=== PATIENT | male | born 1995 | race Caucasian/White ===

== ENCOUNTER 2016-11-11 13:58 | Inpatient (IN) | payer MEDICAID, OTHER ==
[2016-11-11] VITALS (7 sets, daily range): BP systolic 117–126; BP diastolic 64–84; PULSE 92–98; RESP 18–28; TEMP 97.8; O2SAT 97–99
[~2016-11-11] VITALS: Ht 180.3 cm; Wt 68.1 kg
[~2016-11-11 13:58] MED LIST: LACTATED RINGER'S 1000 ML INJ 2,000 ML IV ONE; NORMOSOL R INJ 2,000 ML IV ONE; PHENYLEPH/NS 1000 MCG/10 ML SYR IV ONE; PROPOFOL 200 MG/20 ML AMP IV ONE; SODIUM BICARBONATE 8.4% INJ 50 MEQ/50 ML SYR IV ONE; SODIUM CHLORID 0.9% 500 ML INJ 500 ML IV ONE; ePHEDrine/NS 25 MG/5 ML SYR IV ONE
[2016-11-11] MEDS ORDERED: MORPHINE SULFATE 8 MG/ML INJ ONE (14:13)
[2016-11-11] MEDS ORDERED: ONDANSETRON HCL 4 MG/2 ML VIAL ONE (14:15)
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
[2016-11-11] MEDS ORDERED: VANCOMYCIN HCL 1000 MG VIAL ONE (15:07)
[2016-11-11 15:09] LABS: HEMATOCRIT 29.8 % (39.0-51.0); MEAN CELL VOLUME 91.1 FL (80.0-100.0); MEAN CORPUSCULAR HEMOGLOBIN 31.3 PG (27.0-34.0); MEAN CORPUSCULAR HGB CONC 34.3 % (32.0-36.0); PLATELET COUNT 155 TH/MM3 (150-450); RED BLOOD COUNT 3.28 MIL/MM3 (4.50-5.90); RED CELL DISTRIBUTION WIDTH 11.9 % (11.6-17.2); REVIEW FLAG FINAL; WHITE BLOOD COUNT 14.2 TH/MM3 (4.0-11.0)
[2016-11-11 15:24] LABS: APTT (PATIENT) 32.3 SEC (24.3-30.1); INTERNATIONAL NORMALIZED RATIO 1.2 RATIO; PROTHROMBIN TIME - PATIENT 13.1 SEC (9.8-11.6)
[2016-11-11 15:34] LABS: I-STAT POTASSIUM 3.5 MMOL/L (3.5-4.9)
[2016-11-11 15:35] LABS: BLOOD GAS CARBOXYHEMOGLOBIN 0.9 % (0-4); BLOOD GAS HCO3 21 mmol/L (22-26); BLOOD GAS METHEMOGLOBIN 1.1 % (0-2); BLOOD GAS O2 HGB SATURATION 98 % (90-100); BLOOD GAS OXYGEN CONTENT 20.4 Vol % (12.0-20.0); BLOOD GAS PCO2 45 mmHg (38-42); BLOOD GAS PO2 256 mmHg (61-120); BLOOD GAS TOTAL HGB 14.5 G/DL (12.0-16.0); CRITICAL VALUE YES; DRAW SITE ART LINE; OXYGEN DEVICE VENTILATOR; STAT YES; TEMP CORR TO 98.6
[2016-11-11 16:42] LABS: BLOOD GAS BASE EXCESS -4.2 mmol/L (-2-2); BLOOD GAS CARBOXYHEMOGLOBIN 1.4 % (0-4); BLOOD GAS HCO3 20 mmol/L (22-26); BLOOD GAS METHEMOGLOBIN 0.9 % (0-2); BLOOD GAS O2 HGB SATURATION 98 % (90-100); BLOOD GAS OXYGEN CONTENT 11.7 Vol % (12.0-20.0); BLOOD GAS PCO2 36 mmHg (38-42); BLOOD GAS PO2 269 mmHg (61-120); CRITICAL VALUE NO; DRAW SITE ART LINE; OXYGEN DEVICE VENTILATOR; TEMP CORR TO 98.6
[2016-11-11 16:44] LABS: STAT YES
[2016-11-11] MEDS: SODIUM CHLOR 0.9% 1000 ML INJ 1,000 ML IV SCH ×2 (16:50→22:28)
[2016-11-11] MEDS: PCA - TOTAL MG MORPHINE DELIVERED PER SHIFT SCH ×2 (17:00→22:00)
[2016-11-11] MEDS ORDERED: ONDANSETRON HCL 4 MG/2 ML VIAL IV PRN (17:00)
[2016-11-11] MEDS ORDERED: SODIUM CHLORIDE 0.9% FLUSH 10 ML FLUSH IV FLUSH PRN (17:00)
[2016-11-11] MEDS ORDERED: METOPROLOL TARTRATE 5 MG/5 ML VIAL ONE (17:00)
[2016-11-11] MEDS ORDERED: NALOXONE HCL 0.4 MG/ML AMP IV PRN ×3 (17:00)
[2016-11-11] MEDS ORDERED: Post-op Orders (for Pharmacy) MISC XX ONE (17:00)
[2016-11-11] MEDS ORDERED: PCA - TOTAL MG MORPHINE DELIVERED PER SHIFT SCH (17:00)
[2016-11-11] MEDS ORDERED: *MEPERIDINE 25 MG INJ VIAL PERIprocedural Use ONLY ONE (17:05)
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
[2016-11-11] MEDS ORDERED: DO NOT ADM ANY ANTICOAGULANT DRUGS PRN (18:15)
[2016-11-11] MEDS: MORPHINE SULFATE 30 MG/30 ML PCA IV SCH (18:22)
[2016-11-11] MEDS: PANTOPRAZOLE SOD 40 MG DELAYED RELEASE TAB PO SCH (18:41)
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
[2016-11-11] MEDS: SODIUM CHLORIDE 0.9% FLUSH 10 ML FLUSH IV FLUSH SCH (20:45)
[2016-11-11] MEDS: DOCUSATE SODIUM 100 MG CAP PO SCH (20:58)
[2016-11-12] VITALS (9 sets, daily range): BP systolic 123–156; BP diastolic 74–91; PULSE 60–112; RESP 16–26; TEMP 98–99.2; O2SAT 98–100
[2016-11-12 03:57] LABS: AUTOMATED NEUTROPHIL # 12.2 TH/MM3 (1.8-7.7); BASOPHIL % 0.1 % (0.0-2.0); EOSINOPHIL % 0.1 % (0.0-4.0); HEMATOCRIT 25.3 % (39.0-51.0); HEMO FLAGS DIFF FINAL; LYMPH % 5.1 % (9.0-44.0); LYMPHOCYTE # 0.7 TH/MM3 (1.0-4.8); MEAN CELL VOLUME 90.8 FL (80.0-100.0); MEAN CORPUSCULAR HEMOGLOBIN 31.4 PG (27.0-34.0); MEAN CORPUSCULAR HGB CONC 34.5 % (32.0-36.0); MONO % 9.2 % (0.0-8.0); NEUT % 85.5 % (16.0-70.0); PLATELET COUNT 156 TH/MM3 (150-450); RED BLOOD COUNT 2.79 MIL/MM3 (4.50-5.90); WHITE BLOOD COUNT 14.2 TH/MM3 (4.0-11.0)
[2016-11-12 04:26] LABS: BICARBONATE 24.5 MEQ/L (21.0-32.0); POTASSIUM 4.3 MEQ/L (3.5-5.1)
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
[2016-11-12 04:47] LABS: CALCIUM-PROTEIN CORRECTED 8.2 MG/DL (8.5-10.1)
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
[2016-11-12] MEDS: PCA - TOTAL MG MORPHINE DELIVERED PER SHIFT SCH ×3 (05:41→21:20)
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
[2016-11-12] MEDS: DOCUSATE SODIUM 100 MG CAP PO SCH ×2 (08:13→20:21)
[2016-11-12] MEDS: PANTOPRAZOLE SOD 40 MG DELAYED RELEASE TAB PO SCH (08:13)
[2016-11-12] MEDS: SODIUM CHLORIDE 0.9% FLUSH 10 ML FLUSH IV FLUSH SCH ×2 (08:13→20:21)
[2016-11-12 11:36] LABS: MRSA PCR NEGATIVE (NEGATIVE); STAPH AUREUS PCR POSITIVE (NEGATIVE)
[2016-11-12] MEDS: SODIUM CHLOR 0.9% 1000 ML INJ 1,000 ML IV SCH (11:46)
[2016-11-12] MEDS: MORPHINE SULFATE 30 MG/30 ML PCA IV SCH (17:33)
[2016-11-12] MEDS: MAGNESIUM HYDROXIDE SUSP 30 ML CUP PO SCH (20:21)
[2016-11-13] VITALS (9 sets, daily range): BP systolic 129–142; BP diastolic 76–85; PULSE 91–125; RESP 16–20; TEMP 97.1–99.6; O2SAT 100
[2016-11-13] MEDS: PCA - TOTAL MG MORPHINE DELIVERED PER SHIFT SCH ×3 (05:28→22:00)
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
[2016-11-13 07:00] LABS: AUTOMATED NEUTROPHIL # 9.7 TH/MM3 (1.8-7.7); BASOPHIL % 0.2 % (0.0-2.0); EOSINOPHIL % 0.3 % (0.0-4.0); HEMATOCRIT 21.6 % (39.0-51.0); HEMO FLAGS DIFF FINAL; LYMPH % 19.5 % (9.0-44.0); LYMPHOCYTE # 2.8 TH/MM3 (1.0-4.8); MEAN CELL VOLUME 90.6 FL (80.0-100.0); MEAN CORPUSCULAR HEMOGLOBIN 31.8 PG (27.0-34.0); MEAN CORPUSCULAR HGB CONC 35.2 % (32.0-36.0); MONO % 11.2 % (0.0-8.0); NEUT % 68.8 % (16.0-70.0); PLATELET COUNT 137 TH/MM3 (150-450); RED BLOOD COUNT 2.38 MIL/MM3 (4.50-5.90); RED CELL DISTRIBUTION WIDTH 11.9 % (11.6-17.2); WHITE BLOOD COUNT 14.1 TH/MM3 (4.0-11.0)
[2016-11-13 07:21] LABS: ANION GAP 8 MEQ/L (5-15); AST (GOT) 63 U/L (15-37); BICARBONATE 28.4 MEQ/L (21.0-32.0); BLOOD UREA NITROGEN 5 MG/DL (7-18); CHLORIDE 102 MEQ/L (98-107); GLOMERULAR FILTRATION RATE 94 ML/MIN (>89); POTASSIUM 3.5 MEQ/L (3.5-5.1); SODIUM (NA) 138 MEQ/L (136-145)
[2016-11-13 07:23] LABS: ALT (GPT) 23 U/L (12-78)
[2016-11-13 07:25] LABS: ALKALINE PHOSPHATASE 41 U/L (45-117); TOTAL BILIRUBIN ADULT 0.5 MG/DL (0.2-1.0)
[2016-11-13] MEDS: PANTOPRAZOLE SOD 40 MG DELAYED RELEASE TAB PO SCH (08:55)
[2016-11-13] MEDS: LACTULOSE SYRUP 20 GM/30 ML CUP PO SCH (08:55)
[2016-11-13] MEDS: DOCUSATE SODIUM 100 MG CAP PO SCH ×2 (08:55→22:27)
[2016-11-13] MEDS: SODIUM CHLORIDE 0.9% FLUSH 10 ML FLUSH IV FLUSH SCH ×2 (08:59→21:00)
[2016-11-13] MEDS ORDERED: LACTULOSE SYRUP 20 GM/30 ML CUP PO SCH (11:15)
[2016-11-13] MEDS ORDERED: SODIUM CHLOR 0.9% 250 ML INJ 250 ML IV ONE (11:30)
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
[2016-11-13] MEDS: ENOXAPARIN SODIUM 30 MG/0.3 ML SYRINGE SQ SCH (12:42)
[2016-11-13] MEDS: KETOROLAC TROMETHAMINE 30 MG/ML (IVP) VIAL IV PUSH SCH ×3 (12:44→22:28)
[2016-11-13] MEDS: oxyCODONE/ACETAMINOPHEN 7.5 MG/325 MG TAB PO PRN (16:14)
[2016-11-13] MEDS ORDERED: WALKER WHEELS/F1 MIS (19:21)
[2016-11-13] MEDS: MAGNESIUM HYDROXIDE SUSP 30 ML CUP PO SCH (22:26)
[2016-11-13] MEDS: FAMOTIDINE 20 MG TAB PO SCH (22:27)
[2016-11-14] MEDS: ENOXAPARIN SODIUM 30 MG/0.3 ML SYRINGE SQ SCH ×2 (00:23→12:50)
[2016-11-14 00:25] VITALS: BP 129/74; PULSE 93; RESP 16; TEMP 97; O2SAT 100
[2016-11-14 04:30] VITALS: BP 134/76; PULSE 100; RESP 16; TEMP 97.2; O2SAT 94
[2016-11-14] MEDS: KETOROLAC TROMETHAMINE 30 MG/ML (IVP) VIAL IV PUSH SCH ×3 (05:26→17:31)
[2016-11-14] MEDS: PCA - TOTAL MG MORPHINE DELIVERED PER SHIFT SCH ×3 (05:29→22:00)
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
[2016-11-14 08:00] VITALS: BP 137/80; PULSE 94; RESP 16; TEMP 96.8; O2SAT 99
[2016-11-14 08:18] LABS: BASOPHIL % 0.4 % (0.0-2.0); EOSINOPHIL # 0.1 TH/MM3 (0-0.4); EOSINOPHIL % 2.1 % (0.0-4.0); HEMATOCRIT 22.5 % (39.0-51.0); HEMO FLAGS DIFF FINAL; LYMPH % 16.8 % (9.0-44.0); LYMPHOCYTE # 1.1 TH/MM3 (1.0-4.8); MEAN CELL VOLUME 87.9 FL (80.0-100.0); MEAN CORPUSCULAR HEMOGLOBIN 31.6 PG (27.0-34.0); MEAN CORPUSCULAR HGB CONC 35.9 % (32.0-36.0); NEUT % 72.7 % (16.0-70.0); PLATELET COUNT 136 TH/MM3 (150-450); RED BLOOD COUNT 2.56 MIL/MM3 (4.50-5.90); RED CELL DISTRIBUTION WIDTH 13.1 % (11.6-17.2); WHITE BLOOD COUNT 6.9 TH/MM3 (4.0-11.0)
[2016-11-14 08:50] LABS: ANION GAP 5 MEQ/L (5-15); AST (GOT) 43 U/L (15-39); BICARBONATE 30.9 MEQ/L (21.0-32.0); BLOOD UREA NITROGEN 4 MG/DL (7-18); CHLORIDE 103 MEQ/L (98-107); GLOMERULAR FILTRATION RATE 164 ML/MIN (>89); POTASSIUM 3.2 MEQ/L (3.5-5.1); SODIUM (NA) 139 MEQ/L (136-145)
[2016-11-14 08:51] LABS: ALT (GPT) 21 U/L (9-52)
[2016-11-14 08:53] LABS: ALKALINE PHOSPHATASE 43 U/L (45-117); TOTAL BILIRUBIN ADULT 0.5 MG/DL (0.2-1.0)
[2016-11-14] MEDS: DOCUSATE SODIUM 100 MG CAP PO SCH ×2 (09:00→22:31)
[2016-11-14] MEDS: LACTULOSE SYRUP 20 GM/30 ML CUP PO SCH (09:00)
[2016-11-14] MEDS: SODIUM CHLORIDE 0.9% FLUSH 10 ML FLUSH IV FLUSH SCH ×2 (09:00→21:00)
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
[2016-11-14 12:00] VITALS: BP 129/67; PULSE 98; RESP 16; TEMP 99.6; O2SAT 99
[2016-11-14 12:14] LABS: HEMATOCRIT 21.4 % (39.0-51.0); MEAN CELL VOLUME 88.1 FL (80.0-100.0); MEAN CORPUSCULAR HEMOGLOBIN 31.3 PG (27.0-34.0); MEAN CORPUSCULAR HGB CONC 35.5 % (32.0-36.0); PLATELET COUNT 128 TH/MM3 (150-450); RED BLOOD COUNT 2.43 MIL/MM3 (4.50-5.90); RED CELL DISTRIBUTION WIDTH 12.9 % (11.6-17.2); REVIEW FLAG FINAL; WHITE BLOOD COUNT 6.5 TH/MM3 (4.0-11.0)
[2016-11-14 16:00] VITALS: BP 126/71; PULSE 86; RESP 17; TEMP 96.9; O2SAT 100
[2016-11-14 20:45] VITALS: BP 138/69; PULSE 87; RESP 16; TEMP 97.8; O2SAT 100
[2016-11-14] MEDS: FAMOTIDINE 20 MG TAB PO SCH (22:31)
[2016-11-14] MEDS: oxyCODONE/ACETAMINOPHEN 7.5 MG/325 MG TAB PO PRN (22:32)
[2016-11-14] MEDS: MAGNESIUM HYDROXIDE SUSP 30 ML CUP PO SCH (22:32)
[2016-11-15 00:35] VITALS: BP 148/74; PULSE 78; RESP 16; TEMP 97.5; O2SAT 100
[2016-11-15] MEDS: ENOXAPARIN SODIUM 30 MG/0.3 ML SYRINGE SQ SCH ×2 (00:56→12:44)
[2016-11-15] MEDS: KETOROLAC TROMETHAMINE 30 MG/ML (IVP) VIAL IV PUSH SCH ×4 (01:01→18:44)
[2016-11-15 03:50] VITALS: BP 150/76; PULSE 84; RESP 16; TEMP 97.3; O2SAT 99
[2016-11-15] MEDS: PCA - TOTAL MG MORPHINE DELIVERED PER SHIFT SCH ×3 (06:00→22:00)
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
[2016-11-15 07:28] LABS: AUTOMATED NEUTROPHIL # 3.6 TH/MM3 (1.8-7.7); BASOPHIL % 0.4 % (0.0-2.0); EOSINOPHIL # 0.4 TH/MM3 (0-0.4); EOSINOPHIL % 6.1 % (0.0-4.0); HEMATOCRIT 21.8 % (39.0-51.0); HEMO FLAGS DIFF FINAL; LYMPH % 25.7 % (9.0-44.0); LYMPHOCYTE # 1.6 TH/MM3 (1.0-4.8); MEAN CELL VOLUME 88.7 FL (80.0-100.0); MEAN CORPUSCULAR HEMOGLOBIN 30.5 PG (27.0-34.0); MEAN CORPUSCULAR HGB CONC 34.4 % (32.0-36.0); MONO % 10.2 % (0.0-8.0); NEUT % 57.6 % (16.0-70.0); PLATELET COUNT 173 TH/MM3 (150-450); RED BLOOD COUNT 2.46 MIL/MM3 (4.50-5.90); RED CELL DISTRIBUTION WIDTH 13.1 % (11.6-17.2); WHITE BLOOD COUNT 6.2 TH/MM3 (4.0-11.0)
[2016-11-15 07:43] VITALS: BP 146/88; PULSE 93; RESP 18; TEMP 97.7; O2SAT 100
[2016-11-15 07:48] LABS: ANION GAP 6 MEQ/L (5-15); AST (GOT) 33 U/L (15-39); BICARBONATE 31.7 MEQ/L (21.0-32.0); BLOOD UREA NITROGEN 5 MG/DL (7-18); CHLORIDE 104 MEQ/L (98-107); GLOMERULAR FILTRATION RATE 155 ML/MIN (>89); POTASSIUM 3.1 MEQ/L (3.5-5.1); SODIUM (NA) 142 MEQ/L (136-145)
[2016-11-15 07:49] LABS: ALT (GPT) 18 U/L (9-52)
[2016-11-15 07:51] LABS: ALKALINE PHOSPHATASE 47 U/L (45-117); TOTAL BILIRUBIN ADULT 0.4 MG/DL (0.2-1.0)
[2016-11-15] MEDS: LACTULOSE SYRUP 20 GM/30 ML CUP PO SCH (09:00)
[2016-11-15] MEDS: SODIUM CHLORIDE 0.9% FLUSH 10 ML FLUSH IV FLUSH SCH ×2 (09:25→21:00)
[2016-11-15] MEDS: oxyCODONE/ACETAMINOPHEN 7.5 MG/325 MG TAB PO PRN ×2 (09:25→22:12)
[2016-11-15] MEDS: DOCUSATE SODIUM 100 MG CAP PO SCH ×2 (09:25→22:09)
[2016-11-15 11:50] VITALS: BP 152/91; PULSE 94; RESP 18; TEMP 97.2; O2SAT 100
[2016-11-15] MEDS ORDERED: POTASSIUM CHLORIDE 10 MEQ CONTROLLED RELEASE TAB PO ONE (13:00)
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
[2016-11-15 20:25] VITALS: BP 142/81; PULSE 84; RESP 18; TEMP 97.2; O2SAT 100
[2016-11-15] MEDS: FAMOTIDINE 20 MG TAB PO SCH (22:09)
[2016-11-15] MEDS: MAGNESIUM HYDROXIDE SUSP 30 ML CUP PO SCH (22:12)
[2016-11-16 00:15] VITALS: BP 140/69; PULSE 86; RESP 18; TEMP 98; O2SAT 100
[2016-11-16] MEDS: KETOROLAC TROMETHAMINE 30 MG/ML (IVP) VIAL IV PUSH SCH ×5 (00:17→23:21)
[2016-11-16] MEDS: ENOXAPARIN SODIUM 30 MG/0.3 ML SYRINGE SQ SCH ×3 (00:22→23:21)
[2016-11-16 04:15] VITALS: BP 147/82; PULSE 85; RESP 18; TEMP 97.2; O2SAT 100
[2016-11-16] MEDS: PCA - TOTAL MG MORPHINE DELIVERED PER SHIFT SCH (06:00)
[2016-11-16] MEDS: oxyCODONE/ACETAMINOPHEN 7.5 MG/325 MG TAB PO PRN ×2 (06:13→20:52)
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
[2016-11-16 07:52] LABS: AUTOMATED NEUTROPHIL # 3.1 TH/MM3 (1.8-7.7); BASOPHIL % 0.7 % (0.0-2.0); EOSINOPHIL # 0.5 TH/MM3 (0-0.4); EOSINOPHIL % 7.7 % (0.0-4.0); HEMATOCRIT 23.7 % (39.0-51.0); HEMO FLAGS DIFF FINAL; LYMPH % 28.5 % (9.0-44.0); LYMPHOCYTE # 1.7 TH/MM3 (1.0-4.8); MEAN CELL VOLUME 90.2 FL (80.0-100.0); MEAN CORPUSCULAR HEMOGLOBIN 30.7 PG (27.0-34.0); MONO % 10.4 % (0.0-8.0); NEUT % 52.7 % (16.0-70.0); PLATELET COUNT 226 TH/MM3 (150-450); RED BLOOD COUNT 2.62 MIL/MM3 (4.50-5.90); RED CELL DISTRIBUTION WIDTH 12.6 % (11.6-17.2)
[2016-11-16 08:00] VITALS: BP 148/83; PULSE 68; RESP 18; TEMP 97.7; O2SAT 99
[2016-11-16 08:18] LABS: BICARBONATE 31.7 MEQ/L (21.0-32.0); MAGNESIUM 2.5 MG/DL (1.5-2.5); POTASSIUM 3.7 MEQ/L (3.5-5.1)
[2016-11-16] MEDS: SODIUM CHLORIDE 0.9% FLUSH 10 ML FLUSH IV FLUSH SCH ×2 (09:00→20:52)
[2016-11-16] MEDS: DOCUSATE SODIUM 100 MG CAP PO SCH ×2 (09:00→20:51)
[2016-11-16] MEDS: LACTULOSE SYRUP 20 GM/30 ML CUP PO SCH (09:00)
[2016-11-16 12:00] VITALS: BP 155/97; PULSE 93; RESP 20; TEMP 98; O2SAT 97
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
[2016-11-16 16:00] VITALS: BP 150/82; PULSE 80; RESP 20; TEMP 98.5; O2SAT 100
[2016-11-16 20:43] VITALS: BP 149/79; PULSE 93; RESP 18; TEMP 99.5; O2SAT 100
[2016-11-16] MEDS: FAMOTIDINE 20 MG TAB PO SCH (20:51)
[2016-11-16] MEDS: SENNOSIDES 8.6 MG TAB PO PRN (20:51)
[2016-11-16] MEDS: MAGNESIUM HYDROXIDE SUSP 30 ML CUP PO SCH (20:52)
[2016-11-17] VITALS (7 sets, daily range): BP systolic 132–155; BP diastolic 75–89; PULSE 81–97; RESP 16–19; TEMP 96.7–97.9; O2SAT 98–100
[2016-11-17] MEDS: KETOROLAC TROMETHAMINE 30 MG/ML (IVP) VIAL IV PUSH SCH (05:41)
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
[2016-11-17] MEDS: SODIUM CHLORIDE 0.9% FLUSH 10 ML FLUSH IV FLUSH SCH ×2 (09:00→21:00)
[2016-11-17] MEDS: DOCUSATE SODIUM 100 MG CAP PO SCH ×2 (09:06→21:00)
[2016-11-17] MEDS: LACTULOSE SYRUP 20 GM/30 ML CUP PO SCH (09:06)
[2016-11-17] MEDS: ENOXAPARIN SODIUM 30 MG/0.3 ML SYRINGE SQ SCH ×2 (10:57→23:51)
[2016-11-17] MEDS: oxyCODONE/ACETAMINOPHEN 7.5 MG/325 MG TAB PO PRN ×2 (10:57→21:31)
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
[2016-11-17] MEDS: MAGNESIUM HYDROXIDE SUSP 30 ML CUP PO SCH (21:00)
[2016-11-17] MEDS: FAMOTIDINE 20 MG TAB PO SCH (21:30)
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
[2016-11-18] MEDS: LACTULOSE SYRUP 20 GM/30 ML CUP PO SCH (07:48)
[2016-11-18] MEDS: DOCUSATE SODIUM 100 MG CAP PO SCH ×2 (07:48→20:29)
[2016-11-18 08:00] VITALS: BP 146/85; PULSE 88; RESP 18; TEMP 97; O2SAT 100
[2016-11-18] MEDS: oxyCODONE/ACETAMINOPHEN 7.5 MG/325 MG TAB PO PRN ×2 (08:06→20:30)
[2016-11-18] MEDS: SODIUM CHLORIDE 0.9% FLUSH 10 ML FLUSH IV FLUSH SCH ×2 (08:28→20:30)
[2016-11-18 12:00] VITALS: BP 146/81; PULSE 91; RESP 18; TEMP 97; O2SAT 99
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
[2016-11-18] MEDS: ENOXAPARIN SODIUM 30 MG/0.3 ML SYRINGE SQ SCH (13:01)
[2016-11-18 16:00] VITALS: BP 142/76; PULSE 96; RESP 18; TEMP 97.9; O2SAT 99
[2016-11-18 20:10] VITALS: BP 157/89; PULSE 105; RESP 16; TEMP 97.7; O2SAT 100
[2016-11-18] MEDS: MAGNESIUM HYDROXIDE SUSP 30 ML CUP PO SCH (20:29)
[2016-11-18] MEDS: FAMOTIDINE 20 MG TAB PO SCH (20:29)
[2016-11-19] VITALS (7 sets, daily range): BP systolic 136–153; BP diastolic 75–89; PULSE 77–109; RESP 16–18; TEMP 96.5–99.1; O2SAT 99–100
[2016-11-19] MEDS: ENOXAPARIN SODIUM 30 MG/0.3 ML SYRINGE SQ SCH ×3 (01:36→23:39)
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
[2016-11-19] MEDS: DOCUSATE SODIUM 100 MG CAP PO SCH ×2 (08:37→21:31)
[2016-11-19] MEDS: LACTULOSE SYRUP 20 GM/30 ML CUP PO SCH (08:37)
[2016-11-19] MEDS: oxyCODONE/ACETAMINOPHEN 7.5 MG/325 MG TAB PO PRN ×2 (08:37→21:32)
[2016-11-19] MEDS: SODIUM CHLORIDE 0.9% FLUSH 10 ML FLUSH IV FLUSH SCH ×2 (08:39→21:31)
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
[2016-11-19] MEDS: FAMOTIDINE 20 MG TAB PO SCH (21:00)
[2016-11-19] MEDS: MAGNESIUM HYDROXIDE SUSP 30 ML CUP PO SCH (21:31)
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
[2016-11-20 07:30] VITALS: BP 132/81; PULSE 82; RESP 16; TEMP 98; O2SAT 99
[2016-11-20] MEDS: oxyCODONE/ACETAMINOPHEN 7.5 MG/325 MG TAB PO PRN ×2 (08:47→21:50)
[2016-11-20] MEDS: DOCUSATE SODIUM 100 MG CAP PO SCH ×2 (08:47→19:31)
[2016-11-20] MEDS: LACTULOSE SYRUP 20 GM/30 ML CUP PO SCH (08:47)
[2016-11-20] MEDS: SENNOSIDES 8.6 MG TAB PO PRN (08:47)
[2016-11-20] MEDS: SODIUM CHLORIDE 0.9% FLUSH 10 ML FLUSH IV FLUSH SCH ×2 (08:50→19:32)
[2016-11-20] MEDS: ENOXAPARIN SODIUM 30 MG/0.3 ML SYRINGE SQ SCH ×2 (11:34→23:24)
[2016-11-20 11:35] VITALS: BP 147/88; PULSE 93; RESP 16; TEMP 96.6; O2SAT 99
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
[2016-11-20 15:59] VITALS: BP 137/74; PULSE 89; RESP 16; TEMP 97; O2SAT 99
[2016-11-20 19:00] VITALS: BP 139/82; PULSE 95; RESP 16; TEMP 97.3; O2SAT 100
[2016-11-20] MEDS: FAMOTIDINE 20 MG TAB PO SCH (19:31)
[2016-11-20] MEDS: MAGNESIUM HYDROXIDE SUSP 30 ML CUP PO SCH (19:31)
[2016-11-21] VITALS: BP 148/91; PULSE 87; RESP 16; TEMP 96.9; O2SAT 100
[2016-11-21 04:00] VITALS: BP 142/82; PULSE 94; RESP 17; TEMP 96.2; O2SAT 100
[2016-11-21] MEDS: oxyCODONE/ACETAMINOPHEN 7.5 MG/325 MG TAB PO PRN ×2 (06:28→22:03)
[2016-11-21 08:06] VITALS: BP 135/85; PULSE 93; RESP 16; TEMP 97.2; O2SAT 99
[2016-11-21] MEDS: LACTULOSE SYRUP 20 GM/30 ML CUP PO SCH (09:00)
[2016-11-21] MEDS: DOCUSATE SODIUM 100 MG CAP PO SCH ×2 (09:00→19:50)
[2016-11-21 11:35] VITALS: BP 128/71; PULSE 80; RESP 16; TEMP 96.3; O2SAT 99
[2016-11-21] MEDS: SODIUM CHLORIDE 0.9% FLUSH 10 ML FLUSH IV FLUSH SCH ×2 (13:43→19:50)
[2016-11-21] MEDS: ENOXAPARIN SODIUM 30 MG/0.3 ML SYRINGE SQ SCH ×2 (13:43→23:37)
[2016-11-21 15:25] VITALS: BP 130/66; PULSE 87; RESP 16; TEMP 96.4; O2SAT 99
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
[2016-11-21] MEDS: FAMOTIDINE 20 MG TAB PO SCH (19:50)
[2016-11-21] MEDS: MAGNESIUM HYDROXIDE SUSP 30 ML CUP PO SCH (19:50)
[2016-11-21 20:30] VITALS: BP 130/76; PULSE 87; RESP 16; TEMP 97.5; O2SAT 99
[2016-11-22 00:15] VITALS: BP 132/77; PULSE 84; RESP 16; TEMP 98.3; O2SAT 99
[2016-11-22 04:40] VITALS: BP 133/79; PULSE 85; RESP 16; TEMP 97.4; O2SAT 100
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
[2016-11-22 07:25] VITALS: BP 133/78; PULSE 79; RESP 16; TEMP 97; O2SAT 99
[2016-11-22] MEDS: LACTULOSE SYRUP 20 GM/30 ML CUP PO SCH (08:03)
[2016-11-22] MEDS: DOCUSATE SODIUM 100 MG CAP PO SCH ×2 (08:03→20:32)
[2016-11-22] MEDS: SODIUM CHLORIDE 0.9% FLUSH 10 ML FLUSH IV FLUSH SCH ×2 (09:00→20:32)
[2016-11-22] MEDS: oxyCODONE/ACETAMINOPHEN 7.5 MG/325 MG TAB PO PRN ×2 (10:38→21:14)
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
[2016-11-22 11:45] VITALS: BP 147/90; PULSE 109; RESP 16; TEMP 96.3; O2SAT 99
[2016-11-22] MEDS: ENOXAPARIN SODIUM 30 MG/0.3 ML SYRINGE SQ SCH ×2 (12:28→23:10)
[2016-11-22 15:10] VITALS: BP 139/73; PULSE 92; RESP 16; TEMP 96.4; O2SAT 100
[2016-11-22] MEDS: FAMOTIDINE 20 MG TAB PO SCH (20:32)
[2016-11-22] MEDS: MAGNESIUM HYDROXIDE SUSP 30 ML CUP PO SCH (20:32)
[2016-11-22] MEDS: SENNOSIDES 8.6 MG TAB PO PRN (20:32)
[2016-11-22 20:35] VITALS: BP 136/73; PULSE 88; RESP 16; TEMP 97.6; O2SAT 99
[2016-11-22 21:04] LABS: BLOOD, URINE NEG (NEG); COMMENT (UR) CULT NOT INDICATED; CULTURE IF INDICATED CULT NOT INDICATED; GLUCOSE,URINE NEG (NEG); KETONE, URINE NEG (NEG); MUCUS URINE FEW /lpf (OCC); NITRITE,URINE NEG (NEG); PH, URINE 5.5 (5.0-8.5); URINE COLOR YELLOW (YELLW/STRAW)
[2016-11-23 00:45] VITALS: BP 128/65; PULSE 84; RESP 16; TEMP 98; O2SAT 100
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
[2016-11-23 07:30] LABS: AUTOMATED NEUTROPHIL # 3.9 TH/MM3 (1.8-7.7); BASOPHIL # 0.1 TH/MM3 (0-0.2); BASOPHIL % 0.8 % (0.0-2.0); EOSINOPHIL # 0.5 TH/MM3 (0-0.4); EOSINOPHIL % 6.8 % (0.0-4.0); HEMATOCRIT 27.8 % (39.0-51.0); HEMO FLAGS DIFF FINAL; LYMPHOCYTE # 1.8 TH/MM3 (1.0-4.8); MEAN CELL VOLUME 89.6 FL (80.0-100.0); MEAN CORPUSCULAR HEMOGLOBIN 29.4 PG (27.0-34.0); MEAN CORPUSCULAR HGB CONC 32.9 % (32.0-36.0); MONO % 9.9 % (0.0-8.0); NEUT % 56.5 % (16.0-70.0); PLATELET COUNT 446 TH/MM3 (150-450); RED BLOOD COUNT 3.11 MIL/MM3 (4.50-5.90); WHITE BLOOD COUNT 6.9 TH/MM3 (4.0-11.0)
[2016-11-23 07:39] LABS: ANION GAP 6 MEQ/L (5-15); AST (GOT) 28 U/L (15-39); BICARBONATE 30.4 MEQ/L (21.0-32.0); BLOOD UREA NITROGEN 14 MG/DL (7-18); CHLORIDE 104 MEQ/L (98-107); GLOMERULAR FILTRATION RATE 125 ML/MIN (>89); POTASSIUM 4.1 MEQ/L (3.5-5.1); SODIUM (NA) 140 MEQ/L (136-145)
[2016-11-23 07:42] LABS: ALKALINE PHOSPHATASE 63 U/L (45-117); ALT (GPT) 62 U/L (9-52); TOTAL BILIRUBIN ADULT 0.2 MG/DL (0.2-1.0)
[2016-11-23 08:00] VITALS: BP 141/76; PULSE 75; RESP 16; TEMP 97; O2SAT 100
[2016-11-23] MEDS: DOCUSATE SODIUM 100 MG CAP PO SCH ×2 (08:36→20:36)
[2016-11-23] MEDS: LACTULOSE SYRUP 20 GM/30 ML CUP PO SCH (08:37)
[2016-11-23] MEDS: oxyCODONE/ACETAMINOPHEN 7.5 MG/325 MG TAB PO PRN ×2 (08:37→22:08)
[2016-11-23] MEDS: SODIUM CHLORIDE 0.9% FLUSH 10 ML FLUSH IV FLUSH SCH ×2 (08:37→20:36)
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
[2016-11-23 12:00] VITALS: BP 146/81; PULSE 82; RESP 18; TEMP 97.3; O2SAT 100
[2016-11-23] MEDS: ENOXAPARIN SODIUM 30 MG/0.3 ML SYRINGE SQ SCH (13:06)
[2016-11-23 16:00] VITALS: BP 133/73; PULSE 84; RESP 16; TEMP 97.1; O2SAT 100
[2016-11-23] MEDS: MAGNESIUM HYDROXIDE SUSP 30 ML CUP PO SCH (20:36)
[2016-11-23] MEDS: FAMOTIDINE 20 MG TAB PO SCH (20:36)
[2016-11-23 20:55] VITALS: BP 128/72; PULSE 72; RESP 16; TEMP 98; O2SAT 99
[2016-11-24] MEDS: ENOXAPARIN SODIUM 30 MG/0.3 ML SYRINGE SQ SCH ×2 (00:04→12:14)
[2016-11-24 00:40] VITALS: BP 124/71; PULSE 73; RESP 16; TEMP 96.9; O2SAT 99
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
[2016-11-24 08:00] VITALS: BP 137/79; PULSE 78; RESP 14; TEMP 96.9; O2SAT 100
[2016-11-24] MEDS: oxyCODONE/ACETAMINOPHEN 7.5 MG/325 MG TAB PO PRN ×2 (08:46→20:47)
[2016-11-24] MEDS: DOCUSATE SODIUM 100 MG CAP PO SCH ×2 (08:46→20:46)
[2016-11-24] MEDS: LACTULOSE SYRUP 20 GM/30 ML CUP PO SCH (08:48)
[2016-11-24] MEDS: SODIUM CHLORIDE 0.9% FLUSH 10 ML FLUSH IV FLUSH SCH ×2 (08:48→20:48)
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
[2016-11-24 12:00] VITALS: BP 139/72; PULSE 79; RESP 14; TEMP 97.6; O2SAT 100
[2016-11-24 16:00] VITALS: BP 133/69; PULSE 84; RESP 16; TEMP 97.5; O2SAT 100
[2016-11-24 20:40] VITALS: BP 136/70; PULSE 93; RESP 17; TEMP 97.2; O2SAT 99
[2016-11-24] MEDS: FAMOTIDINE 20 MG TAB PO SCH (20:46)
[2016-11-24] MEDS: MAGNESIUM HYDROXIDE SUSP 30 ML CUP PO SCH (20:48)
[2016-11-25] MEDS: ENOXAPARIN SODIUM 30 MG/0.3 ML SYRINGE SQ SCH ×3 (00:05→23:56)
[2016-11-25 00:35] VITALS: BP 131/69; PULSE 74; RESP 17; TEMP 97.5; O2SAT 99
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
[2016-11-25 07:42] VITALS: BP 118/68; PULSE 75; RESP 16; TEMP 96.1; O2SAT 99
[2016-11-25] MEDS: LACTULOSE SYRUP 20 GM/30 ML CUP PO SCH (09:00)
[2016-11-25] MEDS: DOCUSATE SODIUM 100 MG CAP PO SCH ×2 (09:25→20:36)
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
[2016-11-25] MEDS: SODIUM CHLORIDE 0.9% FLUSH 10 ML FLUSH IV FLUSH SCH ×2 (09:26→20:37)
[2016-11-25] MEDS: oxyCODONE/ACETAMINOPHEN 7.5 MG/325 MG TAB PO PRN ×2 (09:26→20:39)
[2016-11-25 11:30] VITALS: BP 144/84; PULSE 94; RESP 16; TEMP 96.4; O2SAT 100
[2016-11-25 16:00] VITALS: BP 131/69; PULSE 87; RESP 16; TEMP 97.6; O2SAT 99
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
[2016-11-25 19:39] VITALS: BP 144/73; PULSE 90; RESP 18; TEMP 96.9; O2SAT 99
[2016-11-25] MEDS: MAGNESIUM HYDROXIDE SUSP 30 ML CUP PO SCH (20:36)
[2016-11-25] MEDS: FAMOTIDINE 20 MG TAB PO SCH (20:37)
[2016-11-26 00:31] VITALS: BP 134/67; PULSE 86; RESP 18; TEMP 98.7; O2SAT 100
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
[2016-11-26 07:20] VITALS: BP 125/73; PULSE 109; RESP 16; TEMP 97.7; O2SAT 99
[2016-11-26] MEDS: DOCUSATE SODIUM 100 MG CAP PO SCH ×2 (07:47→19:46)
[2016-11-26] MEDS: SODIUM CHLORIDE 0.9% FLUSH 10 ML FLUSH IV FLUSH SCH ×2 (07:48→19:46)
[2016-11-26] MEDS: LACTULOSE SYRUP 20 GM/30 ML CUP PO SCH (07:48)
[2016-11-26] MEDS: oxyCODONE/ACETAMINOPHEN 7.5 MG/325 MG TAB PO PRN ×2 (07:48→18:40)
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
[2016-11-26 11:20] VITALS: BP 124/67; PULSE 92; RESP 16; TEMP 96.6; O2SAT 99
[2016-11-26] MEDS: ENOXAPARIN SODIUM 30 MG/0.3 ML SYRINGE SQ SCH (12:49)
[2016-11-26 16:00] VITALS: BP 125/71; PULSE 105; RESP 18; TEMP 98.9; O2SAT 99
[2016-11-26] MEDS: MAGNESIUM HYDROXIDE SUSP 30 ML CUP PO SCH (19:46)
[2016-11-26] MEDS: FAMOTIDINE 20 MG TAB PO SCH (19:46)
[2016-11-26 20:30] VITALS: BP 130/74; PULSE 113; RESP 16; TEMP 98.5; O2SAT 98
[2016-11-27] MEDS: ENOXAPARIN SODIUM 30 MG/0.3 ML SYRINGE SQ SCH ×2 (00:04→14:07)
[2016-11-27 00:30] VITALS: BP 122/63; PULSE 89; RESP 16; TEMP 96.9; O2SAT 99
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
[2016-11-27 07:40] LABS: HEMATOCRIT 29.4 % (39.0-51.0); MEAN CELL VOLUME 86.9 FL (80.0-100.0); MEAN CORPUSCULAR HEMOGLOBIN 28.8 PG (27.0-34.0); MEAN CORPUSCULAR HGB CONC 33.2 % (32.0-36.0); PLATELET COUNT 530 TH/MM3 (150-450); RED BLOOD COUNT 3.39 MIL/MM3 (4.50-5.90); REVIEW FLAG FINAL; WHITE BLOOD COUNT 9.1 TH/MM3 (4.0-11.0)
[2016-11-27 08:00] VITALS: BP 129/77; PULSE 96; RESP 18; TEMP 97.5; O2SAT 99
[2016-11-27 08:10] LABS: BICARBONATE 27.5 MEQ/L (21.0-32.0); POTASSIUM 3.5 MEQ/L (3.5-5.1)
[2016-11-27] MEDS: LACTULOSE SYRUP 20 GM/30 ML CUP PO SCH (09:00)
[2016-11-27] MEDS: DOCUSATE SODIUM 100 MG CAP PO SCH ×2 (09:18→21:10)
[2016-11-27] MEDS: oxyCODONE/ACETAMINOPHEN 7.5 MG/325 MG TAB PO PRN ×2 (09:18→21:10)
[2016-11-27] MEDS: SODIUM CHLORIDE 0.9% FLUSH 10 ML FLUSH IV FLUSH SCH ×2 (09:19→21:11)
[2016-11-27 12:00] VITALS: BP 136/73; PULSE 107; RESP 18; TEMP 98.3; O2SAT 98
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
[2016-11-27 16:00] VITALS: BP 134/75; PULSE 104; RESP 18; TEMP 97.3; O2SAT 100
[2016-11-27 20:05] VITALS: BP 120/70; PULSE 88; RESP 17; TEMP 97.2; O2SAT 100
[2016-11-27] MEDS: MAGNESIUM HYDROXIDE SUSP 30 ML CUP PO SCH (21:00)
[2016-11-27] MEDS: FAMOTIDINE 20 MG TAB PO SCH (21:10)
[2016-11-28] MEDS: ENOXAPARIN SODIUM 30 MG/0.3 ML SYRINGE SQ SCH ×2 (00:04→12:10)
[2016-11-28 00:05] VITALS: BP 129/69; PULSE 87; RESP 17; TEMP 97.1; O2SAT 100
[2016-11-28 08:00] VITALS: BP 121/78; PULSE 91; RESP 16; TEMP 98.3; O2SAT 99
[2016-11-28] MEDS: LACTULOSE SYRUP 20 GM/30 ML CUP PO SCH (09:00)
[2016-11-28] MEDS: DOCUSATE SODIUM 100 MG CAP PO SCH ×2 (09:15→21:04)
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
[2016-11-28 12:00] VITALS: BP 133/76; PULSE 112; RESP 16; TEMP 98.8; O2SAT 100
[2016-11-28] MEDS: SODIUM CHLORIDE 0.9% FLUSH 10 ML FLUSH IV FLUSH SCH ×2 (12:10→21:00)
[2016-11-28 16:00] VITALS: BP 128/75; PULSE 92; RESP 16; TEMP 98.2; O2SAT 98
[2016-11-28 20:45] VITALS: BP 124/74; PULSE 86; RESP 16; TEMP 97.3; O2SAT 98
[2016-11-28] MEDS: MAGNESIUM HYDROXIDE SUSP 30 ML CUP PO SCH (21:00)
[2016-11-28] MEDS: oxyCODONE/ACETAMINOPHEN 7.5 MG/325 MG TAB PO PRN (21:04)
[2016-11-28] MEDS: FAMOTIDINE 20 MG TAB PO SCH (21:04)
[2016-11-29] MEDS: ENOXAPARIN SODIUM 30 MG/0.3 ML SYRINGE SQ SCH ×3 (00:33→23:28)
[2016-11-29 00:35] VITALS: BP 122/67; PULSE 80; RESP 16; TEMP 96.4; O2SAT 100
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
[2016-11-29 08:00] VITALS: BP 121/72; PULSE 85; RESP 18; TEMP 97.6; O2SAT 99
[2016-11-29] MEDS: LACTULOSE SYRUP 20 GM/30 ML CUP PO SCH (08:23)
[2016-11-29] MEDS: DOCUSATE SODIUM 100 MG CAP PO SCH ×2 (08:23→19:42)
[2016-11-29] MEDS: SODIUM CHLORIDE 0.9% FLUSH 10 ML FLUSH IV FLUSH SCH ×2 (08:24→19:43)
[2016-11-29] MEDS: SENNOSIDES 8.6 MG TAB PO PRN (08:24)
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
[2016-11-29 12:00] VITALS: BP 131/77; PULSE 91; RESP 18; TEMP 97.6; O2SAT 99
[2016-11-29 16:00] VITALS: BP 133/76; PULSE 93; RESP 18; TEMP 98; O2SAT 100
[2016-11-29] MEDS: MAGNESIUM HYDROXIDE SUSP 30 ML CUP PO SCH (19:42)
[2016-11-29] MEDS: FAMOTIDINE 20 MG TAB PO SCH (19:42)
[2016-11-29 20:00] VITALS: BP 126/77; PULSE 94; RESP 16; TEMP 96.1; O2SAT 100
[2016-11-30] VITALS: BP 134/75; PULSE 81; RESP 17; TEMP 97; O2SAT 99
[2016-11-30] MEDS: SODIUM CHLORIDE 0.9% FLUSH 10 ML FLUSH IV FLUSH SCH ×2 (07:51→20:33)
[2016-11-30] MEDS: DOCUSATE SODIUM 100 MG CAP PO SCH ×2 (07:52→20:33)
[2016-11-30] MEDS: LACTULOSE SYRUP 20 GM/30 ML CUP PO SCH (07:52)
[2016-11-30 08:00] VITALS: BP 131/83; PULSE 88; RESP 16; TEMP 97.7; O2SAT 99
[2016-11-30 12:00] VITALS: BP_SYST 121; BP_SYST 139; BP_DIAS 72; BP_DIAS 79; PULSE 90; RESP 16; RESP 18; TEMP 97.6; TEMP 98.4; O2SAT 100; O2SAT 96
[2016-11-30] MEDS: ENOXAPARIN SODIUM 30 MG/0.3 ML SYRINGE SQ SCH (12:13)
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
[2016-11-30] MEDS: MAGNESIUM HYDROXIDE SUSP 30 ML CUP PO SCH (20:33)
[2016-11-30] MEDS: FAMOTIDINE 20 MG TAB PO SCH (20:33)
[2016-11-30 20:40] VITALS: BP 134/78; PULSE 88; RESP 16; TEMP 98.5; O2SAT 99
[2016-12-01] MEDS: ENOXAPARIN SODIUM 30 MG/0.3 ML SYRINGE SQ SCH ×3 (00:19→23:23)
[2016-12-01 00:40] VITALS: BP 130/76; PULSE 88; RESP 16; TEMP 97.3; O2SAT 99
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
[2016-12-01 08:00] VITALS: BP 119/75; PULSE 82; RESP 16; TEMP 97.7; O2SAT 100
[2016-12-01] MEDS: SODIUM CHLORIDE 0.9% FLUSH 10 ML FLUSH IV FLUSH SCH ×2 (09:00→21:00)
[2016-12-01] MEDS: LACTULOSE SYRUP 20 GM/30 ML CUP PO SCH (09:00)
[2016-12-01] MEDS: DOCUSATE SODIUM 100 MG CAP PO SCH ×2 (09:00→21:00)
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
[2016-12-01 12:00] VITALS: BP 123/87; PULSE 81; RESP 16; TEMP 98; O2SAT 100
[2016-12-01 20:20] VITALS: BP 123/78; PULSE 103; RESP 16; TEMP 97.6; O2SAT 100
[2016-12-01] MEDS: FAMOTIDINE 20 MG TAB PO SCH (21:00)
[2016-12-01] MEDS: MAGNESIUM HYDROXIDE SUSP 30 ML CUP PO SCH (21:00)
[2016-12-02] VITALS: BP 116/71; PULSE 83; RESP 17; TEMP 97.3; O2SAT 100
[2016-12-02 04:00] VITALS: BP 124/70; PULSE 79; RESP 16; TEMP 98.1; O2SAT 100
[2016-12-02 08:00] VITALS: BP 141/75; PULSE 82; RESP 18; TEMP 98; O2SAT 100
[2016-12-02] MEDS: DOCUSATE SODIUM 100 MG CAP PO SCH ×2 (09:00→19:38)
[2016-12-02] MEDS: SODIUM CHLORIDE 0.9% FLUSH 10 ML FLUSH IV FLUSH SCH ×2 (09:00→19:38)
[2016-12-02] MEDS: LACTULOSE SYRUP 20 GM/30 ML CUP PO SCH (09:00)
[2016-12-02 12:00] VITALS: BP 122/80; PULSE 85; RESP 18; TEMP 97; O2SAT 99
[2016-12-02] MEDS: ENOXAPARIN SODIUM 30 MG/0.3 ML SYRINGE SQ SCH ×2 (12:00→23:47)
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
[2016-12-02 16:00] VITALS: BP 134/72; PULSE 92; RESP 20; TEMP 98.5; O2SAT 100
[2016-12-02] MEDS: FAMOTIDINE 20 MG TAB PO SCH (19:37)
[2016-12-02] MEDS: MAGNESIUM HYDROXIDE SUSP 30 ML CUP PO SCH (19:38)
[2016-12-02 20:00] VITALS: BP 138/77; PULSE 100; RESP 16; TEMP 97.6; O2SAT 99
[2016-12-03] VITALS: BP 124/71; PULSE 86; RESP 16; TEMP 97.5; O2SAT 99
[2016-12-03 04:00] VITALS: BP 117/68; PULSE 88; RESP 16; TEMP 98; O2SAT 100
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
[2016-12-03 08:00] VITALS: BP 129/78; PULSE 86; RESP 16; TEMP 97; O2SAT 100
[2016-12-03] MEDS: SODIUM CHLORIDE 0.9% FLUSH 10 ML FLUSH IV FLUSH SCH ×2 (09:00→20:26)
[2016-12-03] MEDS: DOCUSATE SODIUM 100 MG CAP PO SCH ×2 (09:00→20:25)
[2016-12-03] MEDS: LACTULOSE SYRUP 20 GM/30 ML CUP PO SCH (09:00)
[2016-12-03 12:00] VITALS: BP 123/68; PULSE 86; RESP 16; TEMP 97.5; O2SAT 100
[2016-12-03] MEDS: ENOXAPARIN SODIUM 30 MG/0.3 ML SYRINGE SQ SCH (12:03)
[2016-12-03 16:00] VITALS: BP 130/69; PULSE 105; RESP 16; TEMP 96.2; O2SAT 100
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
[2016-12-03] MEDS ORDERED: LIDOCAINE HCL 1% 50 ML VIAL INFIL ONE (16:15)
[2016-12-03] MEDS: MAGNESIUM HYDROXIDE SUSP 30 ML CUP PO SCH (20:25)
[2016-12-03] MEDS: FAMOTIDINE 20 MG TAB PO SCH (20:25)
[2016-12-04] VITALS: BP 159/82; PULSE 102; RESP 17; TEMP 97.3; O2SAT 100
[2016-12-04] MEDS: ENOXAPARIN SODIUM 30 MG/0.3 ML SYRINGE SQ SCH ×2 (00:24→12:16)
[2016-12-04 04:00] VITALS: BP 132/69; PULSE 97; RESP 16; TEMP 97.5; O2SAT 100
[2016-12-04] MEDS ORDERED: DOXYCYCLINE ONE (07:00)
[2016-12-04] MEDS ORDERED: SODIUM CHLORIDE 0.9% ONE (07:00)
[2016-12-04 08:00] VITALS: BP 132/72; PULSE 88; RESP 18; TEMP 97.6; O2SAT 99
[2016-12-04] MEDS: DOCUSATE SODIUM 100 MG CAP PO SCH ×2 (08:33→20:56)
[2016-12-04] MEDS: LACTULOSE SYRUP 20 GM/30 ML CUP PO SCH (08:33)
[2016-12-04] MEDS: SODIUM CHLORIDE 0.9% FLUSH 10 ML FLUSH IV FLUSH SCH ×2 (08:36→20:57)
[2016-12-04] MEDS: oxyCODONE/ACETAMINOPHEN 7.5 MG/325 MG TAB PO PRN ×2 (11:20→15:22)
[2016-12-04 12:00] VITALS: BP 126/75; PULSE 108; RESP 18; TEMP 98.9; O2SAT 100
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
[2016-12-04 16:00] VITALS: BP 127/71; PULSE 102; RESP 18; TEMP 97.9; O2SAT 94
[2016-12-04 20:00] VITALS: BP 146/90; PULSE 95; RESP 17; TEMP 97.8; O2SAT 100
[2016-12-04] MEDS: FAMOTIDINE 20 MG TAB PO SCH (20:56)
[2016-12-04] MEDS: MAGNESIUM HYDROXIDE SUSP 30 ML CUP PO SCH (20:57)
[2016-12-05] VITALS: BP 142/82; PULSE 100; RESP 16; TEMP 96.8; O2SAT 100
[2016-12-05] MEDS: ENOXAPARIN SODIUM 30 MG/0.3 ML SYRINGE SQ SCH ×2 (00:18→13:02)
[2016-12-05 04:00] VITALS: BP 139/73; PULSE 82; RESP 16; TEMP 97.8; O2SAT 99
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
[2016-12-05] MEDS: LACTULOSE SYRUP 20 GM/30 ML CUP PO SCH (08:59)
[2016-12-05] MEDS: SODIUM CHLORIDE 0.9% FLUSH 10 ML FLUSH IV FLUSH SCH ×2 (08:59→21:25)
[2016-12-05] MEDS: DOCUSATE SODIUM 100 MG CAP PO SCH ×2 (08:59→21:24)
[2016-12-05 09:31] VITALS: BP 109/66; PULSE 92; RESP 20; TEMP 97.9; O2SAT 99
[2016-12-05 12:00] VITALS: BP 136/81; PULSE 96; RESP 20; TEMP 97.8; O2SAT 99
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
[2016-12-05 16:00] VITALS: BP 158/80; PULSE 94; RESP 20; TEMP 97; O2SAT 100
[2016-12-05 20:00] VITALS: BP 124/78; PULSE 99; RESP 16; TEMP 97.7; O2SAT 98
[2016-12-05] MEDS: MAGNESIUM HYDROXIDE SUSP 30 ML CUP PO SCH ×2 (21:00→21:25)
[2016-12-05] MEDS: FAMOTIDINE 20 MG TAB PO SCH (21:24)
[2016-12-06] VITALS: BP 120/79; PULSE 100; RESP 17; TEMP 98.5; O2SAT 99
[2016-12-06] MEDS: ENOXAPARIN SODIUM 30 MG/0.3 ML SYRINGE SQ SCH ×2 (00:31→12:06)
[2016-12-06 04:17] VITALS: BP 128/82; PULSE 97; RESP 16; TEMP 98; O2SAT 100
[2016-12-06 05:37] LABS: AUTOMATED NEUTROPHIL # 3.2 TH/MM3 (1.8-7.7); BASOPHIL % 0.6 % (0.0-2.0); EOSINOPHIL % 13.3 % (0.0-4.0); HEMATOCRIT 31.4 % (39.0-51.0); HEMO FLAGS DIFF FINAL; LYMPH % 29.2 % (9.0-44.0); LYMPHOCYTE # 2.2 TH/MM3 (1.0-4.8); MEAN CELL VOLUME 85.4 FL (80.0-100.0); MEAN CORPUSCULAR HEMOGLOBIN 28.1 PG (27.0-34.0); MEAN CORPUSCULAR HGB CONC 32.9 % (32.0-36.0); MONO % 13.7 % (0.0-8.0); NEUT % 43.2 % (16.0-70.0); PLATELET COUNT 438 TH/MM3 (150-450); RED BLOOD COUNT 3.68 MIL/MM3 (4.50-5.90); RED CELL DISTRIBUTION WIDTH 14.2 % (11.6-17.2); WHITE BLOOD COUNT 7.4 TH/MM3 (4.0-11.0)
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
[2016-12-06 08:00] VITALS: BP 114/78; PULSE 74; RESP 18; TEMP 97.2; O2SAT 74
[2016-12-06] MEDS: DOCUSATE SODIUM 100 MG CAP PO SCH ×2 (08:45→21:31)
[2016-12-06] MEDS: LACTULOSE SYRUP 20 GM/30 ML CUP PO SCH (08:45)
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
[2016-12-06 12:00] VITALS: BP 115/71; PULSE 89; RESP 18; TEMP 98; O2SAT 99
[2016-12-06] MEDS: SODIUM CHLORIDE 0.9% FLUSH 10 ML FLUSH IV FLUSH SCH ×2 (12:08→21:32)
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
[2016-12-06 16:00] VITALS: BP 122/73; PULSE 105; RESP 19; TEMP 98.2; O2SAT 99
[2016-12-06] MEDS: FAMOTIDINE 20 MG TAB PO SCH (21:31)
[2016-12-06] MEDS: MAGNESIUM HYDROXIDE SUSP 30 ML CUP PO SCH (21:31)
[2016-12-06 22:13] VITALS: BP 133/75; PULSE 89; RESP 20; TEMP 98.3; O2SAT 99
[2016-12-07] VITALS (9 sets, daily range): BP systolic 114–133; BP diastolic 69–84; PULSE 78–113; RESP 16–20; TEMP 96.5–97.8; O2SAT 97–99
[2016-12-07] MEDS: ENOXAPARIN SODIUM 30 MG/0.3 ML SYRINGE SQ SCH ×2 (00:08→12:00)
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
[2016-12-07] MEDS: SODIUM CHLORIDE 0.9% FLUSH 10 ML FLUSH IV FLUSH SCH ×2 (09:30→21:23)
[2016-12-07] MEDS: DOCUSATE SODIUM 100 MG CAP PO SCH ×2 (09:30→21:00)
[2016-12-07] MEDS: LACTULOSE SYRUP 20 GM/30 ML CUP PO SCH (09:30)
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
[2016-12-07] MEDS ORDERED: fentaNYL CITRATE 250 MCG/5 ML AMP ONE (16:50)
--- NOTE | 2016-12-07 17:17 | RADRPT ---
EXAM DATE/TIME: 12/07/2016 17:13 [facility] COMPARISON: CT THORAX W/O CONTRAST, December 06, 2016, 14:55. CHEST SINGLE AP, December 07, 2016, 6:41. INDICATIONS : Post chest tube placement. MEDICAL HISTORY : None. SURGICAL HISTORY : None. ENCOUNTER: Initial ACUITY: 1 day PAIN SCORE: 2/10 LOCATION: Right chest FINDINGS: A single frontal expiratory view of the chest was performed. The right-sided chest tube remains with its tip near the apex. This could be introduction of a new pigtail catheter overlying the right hemid iaphragm in good position. There is some residual pleural right lung apex markedly improved. Small re sidual pleural air laterally. Mediastinal structures are in the midline. Left lung remains clear Continued lucency the right fifth rib CONCLUSION: Interval placement of a right-sided pigtail catheter overlying the right hemidiaphragm. Reduction of the apical and lateral pneumothorax seen previously. Elvin Irwin MD on December 07, 2016 at 17:14 Board Certified Radiologist. This report was verified electronically.
[2016-12-07] MEDS: MAGNESIUM HYDROXIDE SUSP 30 ML CUP PO SCH (21:00)
[2016-12-07] MEDS: oxyCODONE/ACETAMINOPHEN 7.5 MG/325 MG TAB PO PRN (21:22)
[2016-12-07] MEDS: FAMOTIDINE 20 MG TAB PO SCH (21:22)
[2016-12-08] VITALS: BP 121/71; PULSE 90; RESP 16; TEMP 98.3; O2SAT 99
[2016-12-08] MEDS: ENOXAPARIN SODIUM 30 MG/0.3 ML SYRINGE SQ SCH ×2 (02:23→12:53)
[2016-12-08 04:00] VITALS: BP 125/62; PULSE 74; RESP 16; TEMP 97.2; O2SAT 98
--- NOTE | 2016-12-08 07:46 | RADRPT ---
EXAM DATE/TIME: 12/07/2016 15:37 [facility] COMPARISON: No previous studies available for comparison. INDICATIONS : Right chest tube placement. Right pleural effusion. MEDICAL HISTORY : Hypertension. SURGICAL HISTORY : Tonsillectomy. ENCOUNTER: Initial ACUITY: 1 day PAIN SCORE: 0/10 LOCATION: Right chest FLUID: DEVICE: 8 [place]is[place] pigtail nonlocking catheter TECHNIQUE: 1. Ultrasound guidance for thoracentesis. 2. Thoracentesis with chest tube placement. The risks, benefits, and alternatives to ultrasound guided thoracentesis were explained to the patien t in detail, including the risk of bleeding and infection and pneumothorax with chest tube insertion. Written and verbal informed consent was obtained. Appropriate area for thoracentesis was marked under ultrasound guidance with the patient in the uprig ht position. Overlying skin was prepped and draped in the usual sterile fashion and with local anest hetic, a dermatotomy was made with an 11 blade scalpel. The prescribed catheter was advanced into th e pleural space. This was attached to the skin and connected to a Pleuovac. The patient tolerated the procedure well and the left the ultrasound suite in stable condition. [facility] t radiograph is to be obtained. CONCLUSION: Uncomplicated ultrasound guided thoracentesis with chest tube placement. Mykel Larios MD on December 08, 2016 at 7:42 Board Certified Radiologist. This report was verified electronically.
[2016-12-08 08:00] VITALS: BP 122/74; PULSE 79; RESP 17; TEMP 96.3; O2SAT 100
[2016-12-08] MEDS: LACTULOSE SYRUP 20 GM/30 ML CUP PO SCH (09:00)
[2016-12-08] MEDS: SODIUM CHLORIDE 0.9% FLUSH 10 ML FLUSH IV FLUSH SCH (09:00)
[2016-12-08] MEDS: DOCUSATE SODIUM 100 MG CAP PO SCH ×2 (09:00→21:00)
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
[2016-12-08 11:28] VITALS: BP 125/79; PULSE 91; RESP 17; TEMP 97.2; O2SAT 100
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
[2016-12-08 15:38] VITALS: BP 129/80; PULSE 92; RESP 17; TEMP 97.2; O2SAT 100
[2016-12-08 20:35] VITALS: BP 118/66; PULSE 97; RESP 16; TEMP 98.4; O2SAT 94
[2016-12-08] MEDS: FAMOTIDINE 20 MG TAB PO SCH (21:00)
[2016-12-08] MEDS: MAGNESIUM HYDROXIDE SUSP 30 ML CUP PO SCH (21:00)
[2016-12-09] VITALS: BP 115/67; PULSE 90; RESP 16; TEMP 97.4; O2SAT 100
[2016-12-09] MEDS: ENOXAPARIN SODIUM 30 MG/0.3 ML SYRINGE SQ SCH ×3 (01:52→23:05)
[2016-12-09 04:00] VITALS: BP 127/77; PULSE 82; RESP 16; TEMP 97.7; O2SAT 100
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
[2016-12-09 07:36] VITALS: BP 140/81; PULSE 100; RESP 17; TEMP 96.2; O2SAT 100
[2016-12-09] MEDS: LACTULOSE SYRUP 20 GM/30 ML CUP PO SCH (08:57)
[2016-12-09] MEDS: DOCUSATE SODIUM 100 MG CAP PO SCH ×2 (08:57→20:24)
[2016-12-09] MEDS: SODIUM CHLORIDE 0.9% FLUSH 10 ML FLUSH IV FLUSH SCH ×2 (08:57→20:24)
[2016-12-09 11:32] VITALS: BP 126/73; PULSE 86; RESP 17; TEMP 97.4; O2SAT 99
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
[2016-12-09 15:33] VITALS: BP 131/80; PULSE 94; RESP 17; TEMP 97.6; O2SAT 100
[2016-12-09] MEDS: FAMOTIDINE 20 MG TAB PO SCH (20:24)
[2016-12-09] MEDS: MAGNESIUM HYDROXIDE SUSP 30 ML CUP PO SCH (20:24)
[2016-12-09 20:30] VITALS: BP 125/77; PULSE 97; RESP 18; TEMP 96.9; O2SAT 100
[2016-12-10 00:10] VITALS: BP 128/80; PULSE 92; RESP 18; TEMP 96.5; O2SAT 100
[2016-12-10 04:15] VITALS: BP 136/74; PULSE 90; RESP 16; TEMP 96.2; O2SAT 100
[2016-12-10 08:00] VITALS: BP 126/70; PULSE 82; RESP 16; TEMP 96.8; O2SAT 99
[2016-12-10] MEDS: LACTULOSE SYRUP 20 GM/30 ML CUP PO SCH (09:00)
[2016-12-10] MEDS: DOCUSATE SODIUM 100 MG CAP PO SCH ×2 (09:43→20:05)
[2016-12-10] MEDS: SODIUM CHLORIDE 0.9% FLUSH 10 ML FLUSH IV FLUSH SCH ×2 (09:43→20:06)
[2016-12-10] MEDS: ENOXAPARIN SODIUM 30 MG/0.3 ML SYRINGE SQ SCH (11:13)
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
[2016-12-10 12:00] VITALS: BP 130/73; PULSE 89; RESP 16; TEMP 96.1; O2SAT 100
[2016-12-10 16:00] VITALS: BP 126/71; PULSE 90; RESP 16; TEMP 96.8; O2SAT 98
[2016-12-10] MEDS: FAMOTIDINE 20 MG TAB PO SCH (20:05)
[2016-12-10] MEDS: MAGNESIUM HYDROXIDE SUSP 30 ML CUP PO SCH (20:06)
[2016-12-10 21:00] VITALS: BP 127/75; PULSE 83; RESP 15; TEMP 97; O2SAT 100
[2016-12-11] VITALS: BP 126/73; PULSE 68; RESP 17; TEMP 98.2; O2SAT 98
[2016-12-11 00:05] VITALS: BP 129/70; PULSE 85; RESP 15; TEMP 97.1; O2SAT 98
[2016-12-11] MEDS: ENOXAPARIN SODIUM 30 MG/0.3 ML SYRINGE SQ SCH ×3 (00:06→23:59)
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
[2016-12-11 07:12] LABS: HEMATOCRIT 33.6 % (39.0-51.0); MEAN CELL VOLUME 83.4 FL (80.0-100.0); MEAN CORPUSCULAR HEMOGLOBIN 27.3 PG (27.0-34.0); MEAN CORPUSCULAR HGB CONC 32.7 % (32.0-36.0); PLATELET COUNT 385 TH/MM3 (150-450); RED BLOOD COUNT 4.03 MIL/MM3 (4.50-5.90); RED CELL DISTRIBUTION WIDTH 14.8 % (11.6-17.2); REVIEW FLAG FINAL; WHITE BLOOD COUNT 6.8 TH/MM3 (4.0-11.0)
[2016-12-11] MEDS: LACTULOSE SYRUP 20 GM/30 ML CUP PO SCH (07:12)
[2016-12-11] MEDS: SODIUM CHLORIDE 0.9% FLUSH 10 ML FLUSH IV FLUSH SCH ×2 (07:29→19:52)
[2016-12-11] MEDS: DOCUSATE SODIUM 100 MG CAP PO SCH ×2 (07:29→19:50)
[2016-12-11 07:33] LABS: BICARBONATE 28.6 MEQ/L (21.0-32.0); POTASSIUM 3.8 MEQ/L (3.5-5.1)
[2016-12-11 08:00] VITALS: BP 121/70; PULSE 83; RESP 18; TEMP 96.9; O2SAT 99
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
[2016-12-11 11:00] VITALS: BP 134/81; PULSE 86; RESP 16; TEMP 97.7; O2SAT 100
[2016-12-11 15:39] VITALS: BP 141/76; PULSE 89; RESP 16; TEMP 96.7; O2SAT 100
[2016-12-11] MEDS: FAMOTIDINE 20 MG TAB PO SCH (19:50)
[2016-12-11] MEDS: MAGNESIUM HYDROXIDE SUSP 30 ML CUP PO SCH (19:51)
[2016-12-11 20:45] VITALS: BP 127/75; PULSE 87; RESP 16; TEMP 97; O2SAT 99
[2016-12-12] VITALS (8 sets, daily range): BP systolic 121–140; BP diastolic 70–97; PULSE 70–103; RESP 16–18; TEMP 96.6–97.7; O2SAT 99–100
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
[2016-12-12] MEDS: LACTULOSE SYRUP 20 GM/30 ML CUP PO SCH (07:14)
[2016-12-12] MEDS: DOCUSATE SODIUM 100 MG CAP PO SCH ×2 (08:30→20:55)
[2016-12-12] MEDS: SODIUM CHLORIDE 0.9% FLUSH 10 ML FLUSH IV FLUSH SCH ×2 (08:30→20:57)
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
[2016-12-12] MEDS: ENOXAPARIN SODIUM 30 MG/0.3 ML SYRINGE SQ SCH ×2 (10:37→23:32)
[2016-12-12] MEDS: MAGNESIUM HYDROXIDE SUSP 30 ML CUP PO SCH (20:54)
[2016-12-12] MEDS: FAMOTIDINE 20 MG TAB PO SCH (20:56)
[2016-12-13] VITALS (7 sets, daily range): BP systolic 114–148; BP diastolic 69–81; PULSE 72–84; RESP 18–20; TEMP 96.7–98.1; O2SAT 95–100
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
[2016-12-13] MEDS: LACTULOSE SYRUP 20 GM/30 ML CUP PO SCH (09:45)
[2016-12-13] MEDS: DOCUSATE SODIUM 100 MG CAP PO SCH ×2 (09:45→20:03)
[2016-12-13] MEDS: SODIUM CHLORIDE 0.9% FLUSH 10 ML FLUSH IV FLUSH SCH ×2 (09:45→20:03)
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
[2016-12-13] MEDS: ENOXAPARIN SODIUM 30 MG/0.3 ML SYRINGE SQ SCH (12:00)
[2016-12-13] MEDS ORDERED: fentaNYL CITRATE 250 MCG/5 ML AMP IV ONE (14:14)
[2016-12-13] MEDS ORDERED: MIDAZOLAM HCL 5 MG/5 ML VIAL IV ONE (14:14)
--- NOTE | 2016-12-13 14:14 | RADRPT ---
EXAM DATE/TIME: 12/13/2016 13:27 [facility] COMPARISON: CHEST SINGLE AP, December 12, 2016, 6:05. CHEST SINGLE AP, December 08, 2016, 9:28. CT THORAX W/O CONTRAST, December 06, 2016, 14:55. INDICATIONS : Pneumothorax. RADIATION DOSE: 3.71 CTDIvol (mGy) MEDICAL HISTORY : Cardiovascular disease. Hypertension. SURGICAL HISTORY : None. ENCOUNTER: Initial ACUITY: 1 day PAIN SCALE: 3/10 LOCATION: Right upper chest TECHNIQUE: Volumetric scanning of the chest was performed. Using automated exposure control and adjustment of t he mA and/or kV according to patient size, radiation dose was kept as low as reasonably achievable to obtain optimal diagnostic quality images. DICOM format image data is available electronically for r eview and comparison. Follow-up recommendations for incidentally detected pulmonary nodules are based at a minimum on nodul e size and patient risk factors according to Fleischner Society Guidelines. FINDINGS: There is evidence of a right apical pneumothorax which measures 4.3 cm in greatest dimension. Extensive scarring is noted within the right apex. The large chest tube has been remove d. A small pig-tailed catheter remains within the right lung base. No significant pleural effusion is identifi ed on today's examination. No mediastinal shift is noted. The left lung is clear. There is a tiny pleural based non-calcified nodule along the posterior aspect of the right upper lung field in the expected region of the superi or segment of the right lower lobe which is indeterminate. Follow up CT of the chest in six months would be helpf ul for further evaluation of this nodule if clinically indicated. No alveolar consolidation is noted. CONCLUSION: 1. Persistent right apical pneumothorax which measures 4.3 cm in greatest dimension. 2. Extensive scarring involving the right upper lobe. 3. 5 mm non-calcified pleural based nodule within the posterior aspect of the superior segment of the right lower lobe. Follow-up CT of the chest in six months is recommended for further evaluation of this nodule. 4. Interval resolution of right pleural effusion. Nathan Quiroz MD on December 13, 2016 at 13:49 Board Certified Radiologist. This report was verified electronically.
--- NOTE | 2016-12-13 14:56 | PD.RAD ---
Post Procedure Progress Note Pre Procedure Diagnosis: (1) Pneumothorax on right Post Procedure Diagnosis: (1) Pneumothorax on right Procedure Date: Dec 13, 2016 Supervising Radiologist: Arun Lyons Proceduralist/Assist: RT Juhi(R) Anesthesia: Local, Conscious Sedation Plan of Activity Patient to Unit: Nursing Unit Patient Condition: Good See PACS Report for procedural detail/treatment Drainage Procedure Procedure 1 Imaging Guidance: Fluoroscopy Side: Right Procedure Type: Chest Tube Non-Tunneled Procedure: Placement Syriac: 16 Drainage: Pleurovac Arun Lyons MD Dec 13, 2016 14:56
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
--- NOTE | 2016-12-13 15:58 | RADRPT ---
EXAM DATE/TIME: 12/13/2016 13:44 [facility] COMPARISON: No previous studies available for comparison. INDICATIONS : Patient presents with right side pneumothorax in need of chest tube placement. MEDICAL HISTORY : HTN SURGICAL HISTORY : N/A ENCOUNTER: Subsequent ACUITY: 1 month PAIN SCORE: 0/10 LOCATION: N/A FLUORO TIME: 3.5 minutes IMAGE SERIES: 1 SEDATION TIME: 30 minutes MEDICATION(S): 1.) 3 mg midazolam (Versed) IV 2.) 150 mcg fentanyl (Sublimaze) IV DEVICE(S): 1.) 16 Gabonese non-locking catheter PROCEDURE : 1. Fluoroscopically guided chest tube placement. 2. Conscious sedation with continuous EKG and oximetry monitoring. The risks, benefits and alternatives to the procedure were explained and verbal and written consent w as obtained. The site was prepped in sterile fashion. Full sterile technique was used, including ca p, mask, sterile gloves and gown and a large sterile sheet. Hand hygiene and 2% chlorhexidine and/or betadine/alcohol prep was utilized per protocol for cutaneous antisepsis. The skin and subcutaneous tissues were infiltrated with local anesthetic solution. With fluoroscopic guidance the chest was punctured between the third and fourth interspace and the pr escribed catheter was placed in the lung apex. Wall suction was applied. Post procedure images demon strate satisfactory position of the tube. The catheter was sutured in place and a Percu-Stay was gabe lied. Conscious sedation was performed with the prescribed dosages and duration as above in the presence of an independent trained radiology nurse to assist in the monitoring of the patient. EKG and oximetry remained stable throughout the procedure. The patient tolerated the procedure well and there were n o complications. The patient was sent to post anesthesia recovery in stable condition. CONCLUSION: Uncomplicated chest tube placement as above. Arun Lyons MD on December 13, 2016 at 15:55 Board Certified Radiologist. This report was verified electronically.
[2016-12-13] MEDS: FAMOTIDINE 20 MG TAB PO SCH (20:00)
[2016-12-13] MEDS: oxyCODONE/ACETAMINOPHEN 7.5 MG/325 MG TAB PO PRN (20:00)
[2016-12-13] MEDS: MAGNESIUM HYDROXIDE SUSP 30 ML CUP PO SCH (20:03)
[2016-12-14] VITALS (7 sets, daily range): BP systolic 128–153; BP diastolic 77–90; PULSE 73–110; RESP 16–18; TEMP 96.3–98.7; O2SAT 98–100
[2016-12-14] MEDS: ENOXAPARIN SODIUM 30 MG/0.3 ML SYRINGE SQ SCH ×2 (00:10→12:02)
[2016-12-14] MEDS: oxyCODONE/ACETAMINOPHEN 7.5 MG/325 MG TAB PO PRN ×2 (00:10→19:27)
[2016-12-14] MEDS: SODIUM CHLORIDE 0.9% FLUSH 10 ML FLUSH IV FLUSH SCH ×2 (08:33→20:20)
[2016-12-14] MEDS: DOCUSATE SODIUM 100 MG CAP PO SCH ×2 (08:33→20:18)
[2016-12-14] MEDS: LACTULOSE SYRUP 20 GM/30 ML CUP PO SCH (08:33)
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
[2016-12-14] MEDS: FAMOTIDINE 20 MG TAB PO SCH (20:18)
[2016-12-14] MEDS: MAGNESIUM HYDROXIDE SUSP 30 ML CUP PO SCH (20:20)
[2016-12-15] MEDS: ENOXAPARIN SODIUM 30 MG/0.3 ML SYRINGE SQ SCH ×3 (00:11→23:23)
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
[2016-12-15 08:00] VITALS: BP 120/77; PULSE 118; RESP 18; TEMP 98.8; O2SAT 98
[2016-12-15] MEDS: SODIUM CHLORIDE 0.9% FLUSH 10 ML FLUSH IV FLUSH SCH ×2 (09:00→21:17)
[2016-12-15] MEDS: DOCUSATE SODIUM 100 MG CAP PO SCH ×2 (09:00→21:17)
[2016-12-15] MEDS: LACTULOSE SYRUP 20 GM/30 ML CUP PO SCH (09:00)
[2016-12-15 12:00] VITALS: BP 141/91; PULSE 117; RESP 18; TEMP 98.3; O2SAT 99
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
--- NOTE | 2016-12-15 14:53 | RADRPT ---
EXAM DATE/TIME: 12/15/2016 11:10 [facility] COMPARISON: CHEST SINGLE AP, December 13, 2016, 8:01. CHEST SINGLE AP, December 15, 2016, 5:57. CHEST EXPIRATION ONLY, December 15, 2016, 13:25. INDICATIONS : No pneumo,no drainage right lower chest tube,has right anterior CT to wall sx DEVICE(S): 1.) Vaseline occlusive dressinggauze,tape PROCEDURE : Chest tube removal. Using aseptic technique the previously placed chest tube was easily removed in one piece and Vaseline gauze and sterile dressing was applied. Chest radiograph is to be obtained. CONCLUSION: Uncomplicated chest tube removal. Arun Lynos MD on December 15, 2016 at 14:50 Board Certified Radiologist. This report was verified electronically.
[2016-12-15 16:00] VITALS: BP 118/71; PULSE 106; RESP 18; TEMP 98.8; O2SAT 99
[2016-12-15 20:35] VITALS: BP 122/71; PULSE 115; RESP 16; TEMP 98.9; O2SAT 97
[2016-12-15] MEDS: MAGNESIUM HYDROXIDE SUSP 30 ML CUP PO SCH (21:17)
[2016-12-15] MEDS: FAMOTIDINE 20 MG TAB PO SCH (21:17)
[2016-12-16 00:25] VITALS: BP 134/78; PULSE 101; RESP 16; TEMP 97.6; O2SAT 99
[2016-12-16 04:25] VITALS: BP 131/80; PULSE 91; RESP 16; TEMP 96.9; O2SAT 99
[2016-12-16 08:00] VITALS: BP 121/75; PULSE 88; RESP 16; TEMP 96.8; O2SAT 98
[2016-12-16] MEDS: LACTULOSE SYRUP 20 GM/30 ML CUP PO SCH (09:00)
[2016-12-16] MEDS: DOCUSATE SODIUM 100 MG CAP PO SCH ×2 (09:00→21:35)
[2016-12-16] MEDS: SODIUM CHLORIDE 0.9% FLUSH 10 ML FLUSH IV FLUSH SCH ×2 (09:05→21:00)
[2016-12-16 12:00] VITALS: BP 125/73; PULSE 87; RESP 15; TEMP 96.3; O2SAT 99
[2016-12-16] MEDS: ENOXAPARIN SODIUM 30 MG/0.3 ML SYRINGE SQ SCH ×2 (12:00→23:53)
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
[2016-12-16 19:30] VITALS: BP 156/83; PULSE 101; RESP 18; TEMP 96.7; O2SAT 98
[2016-12-16] MEDS: MAGNESIUM HYDROXIDE SUSP 30 ML CUP PO SCH (21:00)
[2016-12-16] MEDS: FAMOTIDINE 20 MG TAB PO SCH (21:35)
[2016-12-16 23:06] VITALS: BP 133/77; PULSE 89; RESP 18; TEMP 96.9; O2SAT 99
[2016-12-17 08:00] VITALS: BP 123/74; PULSE 82; RESP 18; TEMP 96.2; O2SAT 99
[2016-12-17] MEDS: SODIUM CHLORIDE 0.9% FLUSH 10 ML FLUSH IV FLUSH SCH ×2 (09:00→19:54)
[2016-12-17] MEDS: DOCUSATE SODIUM 100 MG CAP PO SCH ×2 (09:00→19:54)
[2016-12-17] MEDS: LACTULOSE SYRUP 20 GM/30 ML CUP PO SCH (09:00)
[2016-12-17 12:00] VITALS: BP 121/73; PULSE 81; RESP 18; TEMP 96.7; O2SAT 100
[2016-12-17] MEDS: ENOXAPARIN SODIUM 30 MG/0.3 ML SYRINGE SQ SCH (12:13)
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
[2016-12-17 16:00] VITALS: BP_SYST 108; BP_SYST 137; BP_DIAS 62; BP_DIAS 74; PULSE 77; PULSE 91; RESP 18; TEMP 96.9; TEMP 99.4; O2SAT 99
[2016-12-17 20:00] VITALS: BP 138/89; PULSE 111; RESP 19; TEMP 97.2; O2SAT 99
[2016-12-17 23:40] VITALS: BP 124/74; PULSE 89; RESP 20; TEMP 96.6; O2SAT 99
[2016-12-18] MEDS: ENOXAPARIN SODIUM 30 MG/0.3 ML SYRINGE SQ SCH ×3 (00:15→23:45)
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
[2016-12-18 07:34] VITALS: BP 137/81; PULSE 91; RESP 19; TEMP 97.2; O2SAT 100
[2016-12-18] MEDS: DOCUSATE SODIUM 100 MG CAP PO SCH ×2 (07:34→19:56)
[2016-12-18] MEDS: SODIUM CHLORIDE 0.9% FLUSH 10 ML FLUSH IV FLUSH SCH ×2 (07:35→19:57)
[2016-12-18 10:48] VITALS: BP 141/70; PULSE 96; RESP 16; TEMP 97.7; O2SAT 100
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
[2016-12-18 15:05] VITALS: BP 160/92; PULSE 96; RESP 16; TEMP 98.6; O2SAT 100
[2016-12-18 20:00] VITALS: BP 135/84; PULSE 100; RESP 18; TEMP 96.3; O2SAT 100
[2016-12-19] VITALS: BP 133/70; PULSE 87; RESP 16; TEMP 97.9; O2SAT 100
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
[2016-12-19 08:00] VITALS: BP 133/78; PULSE 85; RESP 18; TEMP 97.3; O2SAT 100
[2016-12-19] MEDS: DOCUSATE SODIUM 100 MG CAP PO SCH (09:00)
[2016-12-19] MEDS: SODIUM CHLORIDE 0.9% FLUSH 10 ML FLUSH IV FLUSH SCH (09:00)
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
== END 2016-12-19 11:50 | disposition home or self-care (01) | DRG 163 ==
LOC: NEPI 13:58 → NEDA 14:29 → EDBD 14:29 → N03B 17:43 → N06A 11-12 08:56
PROVIDERS: ADMIT Surgery; ATTEND Surgery
PROC: 0JD60ZZ Extraction of Chest Subcutaneous Tissue and Fascia, Open Approach (ICD-10-PCS; 2016-11-11)
PROC: 0W9900Z Drainage of Right Pleural Cavity with Drainage Device, Open Approach (ICD-10-PCS; 2016-11-11)
PROC: 0T9B70Z Drainage of Bladder with Drainage Device, Via Natural or Artificial Opening (ICD-10-PCS; 2016-11-11)
PROC: 0W9930Z Drainage of Right Pleural Cavity with Drainage Device, Percutaneous Approach (ICD-10-PCS; 2016-11-11)
PROC: 0BBF0ZZ Excision of Right Lower Lung Lobe, Open Approach (ICD-10-PCS; principal; 2016-11-11 14:24)
PROC: 30233N1 Transfusion of Nonautologous Red Blood Cells into Peripheral Vein, Percutaneous Approach (ICD-10-PCS; 2016-11-13)
PROC: 0W9930Z Drainage of Right Pleural Cavity with Drainage Device, Percutaneous Approach (ICD-10-PCS; 2016-11-13)
DX: S27.391A Other injuries of lung, unilateral, initial encounter (principal); T79.4XXA Traumatic shock, initial encounter; S21.341A Puncture wound with foreign body of right front wall of thorax with penetration into thoracic cavity, initial encounter; S21.44 Puncture wound with foreign body of back wall of thorax with penetration into thoracic cavity; S22.31XB Fracture of one rib, right side, initial encounter for open fracture; J93.82 Other air leak; S27.1XXA Traumatic hemothorax, initial encounter; S27.321A Contusion of lung, unilateral, initial encounter; X95.8XXA Assault by other firearm discharge, initial encounter; Y93.9 Activity, unspecified; Y92.9 Unspecified place or not applicable; R50.82 Postprocedural fever; D64.89 Other specified anemias
CPT/HCPCS: 32551; 32557; 36430; 71010; 71250; 80048; 80053; 81001; 82435; 82565; 82805; 82947; 83735; 84132; 84155; 84295; 84520; 85025; 85027; 85610; 85730; 86850; 86900; 86901; 86920; 87640; 87641; 88305; 88311; 90471; 94150; 94640; 94667; 94668; 96374; 96375; 99152; 99153; 99291; C1729; C1769; G0390; J0690; J1650; J1885; J2175; J2250; J2270; J2370; J2405; J3010; J3370; J7030; J7040; J7120; P9016

== ENCOUNTER → 2016-12-28 | Outpatient (CLI) | payer MEDICAID ==
[~2016-12-28] MED LIST changes: -LACTATED RINGER'S 1000 ML INJ 2,000 ML IV ONE; -NORMOSOL R INJ 2,000 ML IV ONE; -PHENYLEPH/NS 1000 MCG/10 ML SYR IV ONE; -PROPOFOL 200 MG/20 ML AMP IV ONE; -SODIUM BICARBONATE 8.4% INJ 50 MEQ/50 ML SYR IV ONE; -SODIUM CHLORID 0.9% 500 ML INJ 500 ML IV ONE; +WALKER WHEELS/F1 MIS; -ePHEDrine/NS 25 MG/5 ML SYR IV ONE
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
== END ==
LOC: HRAD 12:41
PROVIDERS: ATTEND Surgery
DX: S27.0XXD Traumatic pneumothorax, subsequent encounter (principal); Y24.9XXD Unspecified firearm discharge, undetermined intent, subsequent encounter
CPT/HCPCS: 71020